=== PATIENT | male | born 1970 | race Caucasian/White ===

== ENCOUNTER 2016-05-30 21:26 | Emergency (ER) | payer SELFPAY ==
--- NOTE | ~2016-05-30 | CT4 ---
[facility] A Service of [facility] RADIOLOGY TEXT RESULTS PATIENT: TY JONES LOCATION: SED : 74 UNIT #: [id number] AGE: [address]: CANDICE MIRZA SEX: M ORDER DR: [id number] [place] [id number] MR#: [id number] #: [id number] NAME: TY JONES. : 1970 SEX: M STUDY DATE/TIME: 05/30/2016 21:55 UNIT: SED ROOM: STUDY DESCRIPTION: CT Abd and Pelv Wo Cont Attending Physician: Candice Mirza Ordering Physician: Physician Non-Staff Primary Care Physician: Maxi Raman M.D. MEDICAL IMAGING REPORT This report is preliminary unless electronic signature is present. EXAM CT abdomen and pelvis without contrast HISTORY Left flank pain and dysuria today. The CT exam was performed with one or more of the following radiation dose reduction techniques: automatic exposure control, adjustment of mA and/or kV according to patient size, and iterative reconstruction. FINDINGS CT abdomen and pelvis was performed without contrast CT abdomen: There is a small hiatal hernia. Mild left hydronephrosis and left perinephric stranding. No renal calculi. Approximately 2 cm cyst in the mid right kidney. The liver, gallbladder, spleen, pancreas, and adrenal glands are unremarkable, although evaluation is limited by motion artifact. Tortuous abdominal aorta, normal in caliber. No bowel dilatation. CT pelvis: There is a 2 mm stone in the distal left ureter 1 cm above the ureterovesical junction with mild dilatation of left ureter down to the stone. Urinary bladder is normal. No pelvic free fluid. No adenopathy. No bowel dilatation. The appendix is dilated measuring 1.7 cm in diameter, extending inferiorly from the cecum into the anterior right lower pelvis, and there is an appendicolith or directly adjacent appendicolith measuring 1.2 cm in overall dimension. There is also probably wall thickening of the sza-ig-atieis appendix extending to the appendiceal tip. This raises suspicion of appendicitis, in the appropriate clinical context, although [facility] A Service of [facility] RADIOLOGY TEXT RESULTS PATIENT: TY JONES LOCATION: [facility] [place] 74 UNIT #: [id number] AGE: [address]: CANDICE MIRZA SEX: M ORDER DR: the patient reportedly describes left-sided symptoms. IMPRESSION 1. 2 mm obstructing stone in the distal left ureter 1 cm above the ureterovesical junction causing mild left hydronephrosis and mild left ureteral dilatation. 2. The appendix is abnormal with wall thickening of the [id number] appendix and appendicoliths, and appendiceal dilatation measuring 1.7 cm in diameter. In the appropriate clinical context this would be concerning for appendicitis. Correlation with the patient's symptoms in this regard is recommended. Dictated by... Ilir Ruvalcaba M.D. THIS IS AN ELECTRONICALLY VERIFIED REPORT Ilir Ruvalcaba M.D. at 05/31/2016 3:18 PM CHRISTIAN/deb TD: 05/31/2016 08:51 JOB #: [id number] MEDICAL IMAGING REPORT
[~2016-05-30 21:26] MED LIST: ACETAMINOPHEN; ACULAR10 ML; BACTRIM DS TABL1 TAB PO; DICLOFENAC; IBUPROFEN600 MG PO; INDOCIN SR75 MG PO; INDOMETHACIN75 MG PO; LORTAB 2.5/5001 TAB PO; NO MEDICATIONS; POLYMYXIN B/TMP10 M1; PREDNISONE10 MG/DOSE PO; TYLENOL #3 PO; ULTRAM PO; VICODIN 5-3001 EACH PO
[2016-05-30 21:53] LABS: BASOPHIL% 0.5 % (0-2.5); EOSINOPHIL# 0.1 X10e3 (0-0.7); EOSINOPHIL% 1.2 % (0.0-7.0); HEMATOCRIT 47.6 % (38.0-50.0); HEMOGLOBIN 16.1 gm/dL (13.0-16.0); LYMPHOCYTE# 1.7 X10e3 (1.0-3.5); LYMPHOCYTE% 22.1 % (17.0-45.0); MEAN CELL VOLUME 80.4 FL (83-96); MEAN CORPUSCULAR HEMOGLOBIN 27.2 PG (28-34); MEAN CORPUSCULAR HGB CONC 33.8 g/dL (30-36); MEAN PLATELET VOLUME 7.6 FL (6.5-11.5); MONOCYTE# 0.4 X10e3 (0-1.0); MONOCYTE% 5.4 % (3.0-12.0); NEUTROPHIL# 5.5 X10e3 (1.5-7.1); NEUTROPHIL% 70.8 % (40-75); PLATELET COUNT 135 X10e3 (140-420); RED BLOOD COUNT 5.93 X10e (3.90-5.60); RED CELL DISTRIBUTION WIDTH 13.9 % (11.0-15.5); WHITE BLOOD COUNT 7.7 X10e3 (4.0-10.5)
[2016-05-30 21:57] LABS: DIFF IND NO
[2016-05-30 22:13] LABS: ALBUMIN SERUM 4.5 g/dL (3.5-5.0); ALKALINE PHOSPHATASE 67 U/L (32-92); ALT (SGPT) 71 U/L (10-40); AST (SGOT) 71 U/L (10-42); BILIRUBIN,TOTAL 0.8 mg/dL (0.2-2.0); BLOOD UREA NITROGEN 11 mg/dL (9-23); BUN/CREATININE RATIO 12.22; CALCIUM SERUM 8.8 mg/dL (8.4-10.2); CARBON DIOXIDE 25 mmol/L (22-31); CHLORIDE 103 mmol/L (100-111); CREATININE SERUM 0.9 mg/dL (0.6-1.4); GLOM FILT RATE Estimated ABOVE60 mL/min (>60); GLUCOSE FASTING 147 mg/dL (70-110); LIPASE 48 U/L (22-51); POTASSIUM 3.6 mmol/L (3.5-5.1); PROTEIN TOTAL SERUM 7.5 g/dL (6.0-8.3); SODIUM 137 mmol/L (135-145)
[2016-05-30 23:10] LABS: URINE SOURCE CLEAN CATCH
[2016-05-30 23:12] LABS: URINE APPEARANCE HAZY; URINE BILIRUBIN NEG (NEG); URINE BLOOD 3+ (NEG); URINE COLOR YELLOW; URINE GLUCOSE NEG (NORM); URINE KETONE NEG (NEG); URINE LEUKOCYTE ESTERASE NEG (NEG); URINE NITRATE NEG (NEG); URINE PROTEIN NEG (NEG); URINE UROBILINOGEN 0.2 MG/DL (NORM)
[2016-05-30 23:13] LABS: MICRO INDICATED? YES
[2016-05-30 23:15] LABS: URINE RBC 200-300 /[HPF] (0-2)
[2016-05-30 23:16] LABS: CULTURE INDICATED? NO; URINE BACTERIA NEG (NEG); URINE SQUAMOUS EPITHELIAL CELL FEW /[HPF]; URINE WBC 0-2 /[HPF] (0-5)
== END 2016-05-31 00:55 ==
LOC: SED 21:26
PROVIDERS: Physician Assistant
DX: N13.2 Hydronephrosis with renal and ureteral calculous obstruction (principal); K35.80 Unspecified acute appendicitis; R03.0 Elevated blood-pressure reading, without diagnosis of hypertension
CPT/HCPCS: 36415; 74176; 80053; 81003; 83690; 85025; 96361; 96365; 96375; 96376; 99285; J0295; J1885; J2270; J2405; J2550